=== PATIENT | female | born 1950 | race Caucasian/White ===

== ENCOUNTER → 2017-07-27 | Outpatient (CLI) | payer OTHER, MEDICARE ==
[~2017-07-27] MED LIST: ALBU8.5H IH; AZIT-1 PO; BENZ100C4 PO; BENZ200C15 PO; CETI-169 PO; DIPH0.5D12 IM; DOXY-181 PO; FLUT1DIS29 IH; GUAI-204 PO; GUAI120L3 PO; HYDR-2966 PO; HYDR473S9 PO; HYDR5SUS PEG; LEVO-85 PO; LEVO500T83 PO; LEVO750T44 PO; LISI-362 PO; METF-410 PO; MONT10TA PO; PHEN180L4; PRED20TA6 PO; SIMV-49 PO; TRIA15CR40 TP; ZOST19404 SQ
[2017-07-27 09:24] LABS: PLATELET COUNT, AUTOMATED 180 K/uL (150-450)
[2017-07-27 09:37] LABS: LDL CHOLESTEROL 41 mg/dl
== END ==
LOC: LAB 08:39
PROVIDERS: ATTEND Nurse Practitioner Family
DX: E78.5 Hyperlipidemia, unspecified (principal); E11.9 Type 2 diabetes mellitus without complications; I10 Essential (primary) hypertension
CPT/HCPCS: 36415; 82040; 82247; 82310; 82374; 82435; 82465; 82565; 82947; 83036; 83718; 84075; 84132; 84155; 84295; 84443; 84450; 84460; 84478; 84520; 85025

== ENCOUNTER 2017-08-07 09:38 | Outpatient (RCR) | payer OTHER, MEDICARE ==
--- NOTE | 2017-08-07 16:32 | Medical Nutrition Therapy ---
Nutrition Anthropometrics Height (Inches): 61.00 Weight (Pounds): 135 Gulshan Nutrition Score: Gulshan Nutrition Risk Score: Dietary Referral Nutrition Risk Factors: Nutrition Risk Comment: Nutrition/Food History Pt reports slow wt loss from high of 153# 1 year ago Breakfast: fruit, 8oz OJ, and cold cereal, egg/ toast on weekend Lunch: fast food kid meal with reg soda or sweet tea Dinner: meat, starch, veg , tea with 2 tsp honey Snacks: cheese cracker or fruit Nutritional Education Nutrition Education Topic: Diabetic Nutrition Learning Readiness: Interested Teaching Methods: Discussion Response to Teaching: Verbalize understanding Teaching Recipient: Patient Nutrition Counseling: Pt states has been under "a lot" of stress lately and believes that has contributed to raise in BG. Pt does houskeeping with daily physical activity. Pt states goes weekly for meditation and accupuncture for stress. Discussed glycemic response to CHO and reviewed high glycemic index foods pt was consuming which may be playing a role in higher A1C. Encoruraged pt to avoid fruit juice in morning and add protein. suggested protein bar as a quick breakfast. Discussed impact of sugary drinks. Recommend using sugar sub or limiting honey to 1 measured teaspoon. Encoruaged pt to increase veg and encouraged to change from sandwich to salad at fast food lunches. Pt was offered diabetes classes but declined at this time. Pt did make behavioural goal and support plan. Nutrition Monitoring & Eval Nutritional Goals Comment: Behavioural goal of lowering A1C by: limiting CHO to 1c or 30-45gm/meal continue accupuncture with meditation for stress relief continue taking diabetic meds as ordered limiing high glucose resonding carb ( fruit juci, cracker, sweet tea, cold cereal) RD Patient Assessment Time: [address] Assessment Type: RD Education Nutritional Comment: Provided 60 minute diabetes eduction focusing on nutrition, goals, support plan Copies To Copies to: ANYA HEREDIA APRN, BETH Aug 07, 2017 16:32
[2017-09-09] MEDS ORDERED: HYDR-2966 PO (10:58)
== END 2017-09-11 ==
LOC: DIET 09:38
PROVIDERS: ATTEND Nurse Practitioner Family
DX: Z71.3 Dietary counseling and surveillance (principal); E11.9 Type 2 diabetes mellitus without complications
CPT/HCPCS: G0108 ×2

== ENCOUNTER 2017-10-07 17:23 | Outpatient (RCR) | payer OTHER, MEDICARE ==
[~2017-10-07 17:23] MED LIST changes: -METF-410 PO; +METF-411 PO
--- NOTE | 2017-10-07 17:51 | Medical Nutrition Therapy ---
Nutrition Anthropometrics Height (Inches): 61.00 Weight (Pounds): 135 Gulshan Nutrition Score: Gulshan Nutrition Risk Score: Dietary Referral Nutrition Risk Factors: Nutrition Risk Comment: Nutritional Education Nutrition Education Topic: Other Learning Barriers: Emotional Learning Readiness: Interested Teaching Methods: Discussion, Demonstration, Audiovisual Response to Teaching: Verbalize understanding Nutrition Monitoring & Eval RD Patient Assessment Time: [address] Assessment Type: RD Education Nutritional Comment: Provided 60 minute diabetes eduction focusing on nutrition, goals, support plan 10/07/17 Pt recently diagnosed with T2DM. Pt instructed on Living with Diabetes topics including foot care, penitentiary complications, exercise, hypoglycemia, sick day care, etc. Pt appears interested in diabetes topics and able to answer questions regarding topics covered. I personally spent a total of 60 minutes educating/counseling patient regarding diabetes self-management in a group setting. See education section and my note above for details. Copies To Copies to: ANYA HEREDIA APRN, DIANNE Oct 07, 2017 17:51
== END 2017-11-11 ==
LOC: DIET 17:23
PROVIDERS: ATTEND Nurse Practitioner Family
DX: Z71.3 Dietary counseling and surveillance (principal); E11.9 Type 2 diabetes mellitus without complications
CPT/HCPCS: G0109

== ENCOUNTER → 2018-06-18 | Outpatient (CLI) | payer OTHER, MEDICARE ==
[~2018-06-18] MED LIST changes: -METF-411 PO; +METF-450 PO
== END ==
LOC: LAB 09:53
PROVIDERS: ATTEND Nurse Practitioner Family
DX: E11.9 Type 2 diabetes mellitus without complications (principal); E78.00 Pure hypercholesterolemia, unspecified; I10 Essential (primary) hypertension
CPT/HCPCS: 36415; 82040; 82247; 82310; 82374; 82435; 82565; 82947; 83036; 84075; 84132; 84155; 84295; 84450; 84460; 84520

== ENCOUNTER → 2018-06-28 | Outpatient (CLI) | payer OTHER, MEDICARE ==
[~2018-06-28] MED LIST changes: +LISI20TA29 PO
--- NOTE | 2018-06-28 16:41 | RADIOLOGY IMAGING REPORT ---
FACILITY: [facility] PATIENT NAME: Courtney Zapata : 1950 MR: [id number] V: [id number] EXAM DATE: ORDERING PHYSICIAN: ANYA HEREDIA TECHNOLOGIST: Location: [facility] [place] Patient: Courtney Zapata : 1950 Visit/Account:[id number] Date of Sevice: 06/28/2018 BONE MINERAL DENSITY HISTORY: Screening; asymptomatic postmenopausal state. COMPARISON: 05/29/2015 FINDINGS: LUMBAR SPINE: Bone mineral density (BMD) measured from L1-L4 correlates with a Z-score of 2.9 and a T-score of 1.3 which is normal as defined by the World Health Organization. The corresponding risk of fracture in t he lumbar spine is not increased compared with a young adult reference population. This value has in creased by 2.0-percent since the prior study. More than 5-percent change is considered significant. HIP: Note, the left hip was processed twice with the 2nd acquisition (image 5) chosen for reporting as it better outlined the superior margin of the femoral neck and greater trochanter. Bone mineral density (BMD) measured in the left TOTAL region correlates with a Z-score of 2.4 and a T -score of 1.2 which is normal as defined by the World Health Organization. The corresponding risk of fracture in the hip is not increased compared with a young adult reference population. This value h as increased by less than 1-percent since the prior study. More than 5-percent change is considered significant. Bone mineral density (BMD) measured in the left FEMORAL NECK region correlates with a Z-score of 1.8 and a T-score of 0.3 which is normal as defined by the World Health Organization. The corresponding risk of fracture in the hip is not increased compared with a young adult reference population. This value has increased by 3.9-percent since the prior study. More than 5-percent change is considered s ignificant. Bone mineral density (BMD) measured in the left Femoral Neck region measures 1.077 g/cm2. IMPRESSION: 1. Lumbar spine: Normal bone mineral density. There has been no significant change in the bone mine ral density since the previous exam. 2. Left total hip: Normal bone mineral density. There has been no significant change in the bone min eral density since the previous exam. 3. Left femoral neck: Normal bone mineral density. There has been no significant change in the bone mineral density since the previous exam. 4. Left femoral neck: Bone Mineral Density is 1.077 g/cm2. The next DEXA scan of this patient should include the following sites: L1-L4 and left hip. FRAX? WHO Fracture Risk Assessment Tool link: <http://www.shef.ac.uk/FRAX/tool.jsp?locationValue=9> PLEASE NOTE: 1) The World Health Organization defines low BMD as follows: T-score Normal > -1 Osteopenia < -1 and > -2.5 Osteoporosis < -2.5 without fractures Established osteoporosis < -2.5 with fractures 2) In general, you may wish to consider: Diagnosis Treatment Follow-up DEXA Normal BMD Prevention 2-3 years Osteopenia Prevention/therapy 1-2 years Osteoporosis Therapy Yearly 3) Fracture risk estimated from the T-score is more accurate for vertebral fractures (often spontane ous) than for hip fractures. Report Dictated By: Sachin Lees MD at 06/28/2018 4:26 PM Report E-Signed By: Sachin Lees MD at 06/28/2018 4:37 PM WSN:[id number]
--- NOTE | 2018-06-30 16:26 | RADIOLOGY IMAGING REPORT ---
[place] [facility] [place] NAME: MOLLY LIM : [id number] MR: [id number] V: [id number] EXAM DATE: ORDERING PHYSICIAN: ANYA HEREDIA TECHNOLOGIST: Mayela Chavez PROCEDURE:BILATERAL DIGITAL SCREENING MAMMOGRAM WITH CAD ASSISTED INTERPRETATION & 3D TOMOSYNTHESIS COMPARISON:Prior mammograms 06/23/17, 06/20/16, 05/29/15, 03/19/12. INDICATIONS:screening FINDINGS: The breasts are almost entirely fatty. The parenchymal pattern has remained stable allowing for difference in mammographic technique & patient positioning. There is no evidence of malignant appearing mass, malignant appearing calcifications or other secondary sign of malignancy in either breast. DIAGNOSTIC CATEGORY 1--NEGATIVE. RECOMMENDATIONS: ROUTINE MAMMOGRAM AND CLINICAL EVALUATION. IMPRESSION: BIRADS 1: Negative. No significant abnormality is seen. Dictated by: Sandy Valdez M.D. on 06/30/2018 at 9:46 Transcribed by: RAZA on 06/30/2018 at 9:50 Approved by: Sandy Valdez M.D. on 06/30/2018 at 16:25 [facility]
== END ==
LOC: MAMO 03:48
PROVIDERS: ATTEND Nurse Practitioner Family
DX: Z12.31 Encounter for screening mammogram for malignant neoplasm of breast (principal); Z78.0 Asymptomatic menopausal state
CPT/HCPCS: 77063; 77067; 77080

== ENCOUNTER → 2018-07-19 | Outpatient (CLI) | payer OTHER, MEDICARE ==
[~2018-07-19] MED LIST changes: +ROSU5TAB8 PO
[2018-07-19 09:29] LABS: PLATELET COUNT, AUTOMATED 191 K/uL (150-450)
[2018-07-19 09:33] LABS: INR 1.03
== END ==
LOC: LAB 08:51
PROVIDERS: ATTEND Nurse Practitioner Family
DX: R74.8 Abnormal levels of other serum enzymes (principal)
CPT/HCPCS: 36415; 82040; 82247; 82310; 82374; 82435; 82565; 82947; 84075; 84132; 84155; 84295; 84450; 84460; 84520; 85025; 85610

== ENCOUNTER → 2018-10-14 | Outpatient (CLI) | payer OTHER, MEDICARE ==
[~2018-10-14] MED LIST changes: -DIPH0.5D12 IM; +DIPH0.5S2 IM
--- NOTE | 2018-10-14 15:23 | RADIOLOGY IMAGING REPORT ---
FACILITY: [facility] [place] PATIENT NAME: Courtney Zapata : 1950 MR: [id number] V: [id number] EXAM DATE: [id number] ORDERING PHYSICIAN: DEENA NANCE TECHNOLOGIST: Location: [facility] [place] Patient: Courtney Zapata : 1950 Visit/Account:[id number] Date of Sevice: 10/14/2018 Exam type: CHEST PA LAT History: Not well for one month, cough and shortness of breath Comparison: May 14, 2014. Findings: The lungs are free of acute effusions, infiltrates or edema. Cardiac silhouette is normal in size. There is no evidence of a pneumothorax or pneumomediastinum. There are mild spondylotic changes of t he thoracic spine IMPRESSION: 1. No acute cardiopulmonary process seen Report Dictated By: Sandy Valdez MD at 10/14/2018 3:17 PM Report E-Signed By: Sandy Valdez MD at 10/14/2018 3:19 PM WSN:[email or web address]
--- NOTE | 2018-10-14 18:08 | RADIOLOGY IMAGING REPORT ---
FACILITY: [facility] PATIENT NAME: Courtney Zapata : 1950 MR: [id number] V: [id number] EXAM DATE: ORDERING PHYSICIAN: DEENA NANCE TECHNOLOGIST: Location: [facility] [place] Patient: Courtney Zapata : 1950 Visit/Account:[id number] Date of Sevice: 10/14/2018 EXAMINATION: CT of the Paranasal Sinuses HISTORY: Chronic sinus symptoms TECHNIQUE: CT was performed through the paranasal sinuses without intravenous contrast administratio n. Coronal and sagittal reformatted images were generated. One of the following dose optimization techniques was utilized in the performance of this exam: autom ated exposure control; adjustment of the mA and/or kV according to patient size; or use of iterative reconstruction technique. Specific details can be referenced in the facility's radiology CT exam ope rational policy. COMPARISON: None. FINDINGS: Clear mastoid air cells and middle ear cavities. Mucous retention cyst or mucosal thickening opacifies a right mid ethmoid air cell. Mucosal thickeni ng within a right posterior ethmoid air cell. The left maxillary sinus cavity is diminutive and nearly completely opacified with mucosal thickening and internal secretions. Mild mucosal thickening in the left mid to anterior ethmoid air cells. Thickening and sclerosis of the left maxillary sinus hernandez in keeping with residua of chronic inflamm ation. Slight leftward nasal septum deviation. No apparent nasal cavity polyp. Patent right infundibulum. Left uncinectomy and partial left middle and left inferior turbinectomies. Surgical absence of left ethmoid osseous septations. 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 The visible extracranial and intracranial structures are normal. IMPRESSION: 1. Left-sided paranasal sinus post surgical findings as described above. 2. Mucosal thickening and secretions nearly completely fill the left maxillary sinus. 3. Chronic left maxillary sinus wall thickening and sclerosis in keeping with residua of chronic inf lammation. 4. Right desmond bullosa. 5. Mild bilateral ethmoid sinus mucosal thickening. Report Dictated By: Александр Crawford MD at 10/14/2018 5:59 PM Report E-Signed By: Александр Crawford MD at 10/14/2018 6:04 PM WSN:[id number]
== END ==
LOC: CT 01:23
PROVIDERS: ATTEND Family Medicine
DX: J32.0 Chronic maxillary sinusitis (principal); J34.9 Unspecified disorder of nose and nasal sinuses; J32.2 Chronic ethmoidal sinusitis
CPT/HCPCS: 70486; 71046

== ENCOUNTER → 2018-12-02 | Outpatient (CLI) | payer OTHER, MEDICARE ==
[~2018-12-02] MED LIST changes: +CHOL200074 PO; +MUPI15CR2 TP; +TRIA10.8
--- NOTE | 2018-12-02 14:57 | RADIOLOGY IMAGING REPORT ---
FACILITY: [facility] [place] PATIENT NAME: Courtney Zapata : 1950 MR: [id number] V: [id number] EXAM DATE: ORDERING PHYSICIAN: DILAN MCKINNEY TECHNOLOGIST: Location: [facility] Patient: Courtney Zapata : 1950 Visit/Account:[id number] Date of Sevice: 12/02/2018 EXAMINATION: CT of the Paranasal Sinuses HISTORY: Chronic sinus symptoms TECHNIQUE: CT was performed through the paranasal sinuses without intravenous contrast administratio n. Coronal and sagittal reformatted images were generated. One of the following dose optimization techniques was utilized in the performance of this exam: autom ated exposure control; adjustment of the mA and/or kV according to patient size; or use of iterative reconstruction technique. Specific details can be referenced in the facility's radiology CT exam ope rational policy. COMPARISON: October 14, 2018 FINDINGS: Clear mastoid air cells and middle ear cavities. Trace new right maxillary sinus secretions. Unchanged opacification of a few right ethmoid air cells . Improved aeration of the left anterior ethmoid sinus. The left maxillary sinus cavity is diminutive. The left maxillary sinus cavity is filled with mucosa l thickening and secretions which has decreased. Unchanged thickening and sclerosis of the left maxi llary sinus hernandez. Slight unchanged leftward nasal septum deviation. Right desmond bullosa. No nasal cavity polyp. Pat ent right infundibulum. Unchanged left sided postsurgical findings. Moderate unchanged left temporomandibular joint degeneration. The visible extracranial and intracran ial structures are normal. IMPRESSION: 1. Unchanged postsurgical findings. 2. Trace new right maxillary sinus fluid. 3. Persistent but decreased left maxillary sinus opacification. Improved left ethmoid sinus aeratio n. 4. Otherwise no change. Report Dictated By: Александр Crawford MD at 12/02/2018 2:43 PM Report E-Signed By: Александр Crawford MD at 12/02/2018 2:51 PM WSN:[id number]
== END ==
LOC: CT 00:45
PROVIDERS: ATTEND Physician Assistant
DX: J32.0 Chronic maxillary sinusitis (principal)
CPT/HCPCS: 70486

== ENCOUNTER → 2018-12-28 | Outpatient (CLI) | payer OTHER, MEDICARE ==
[2018-12-28 09:59] LABS: LDL CHOLESTEROL 31 mg/dl
== END ==
LOC: LAB 09:01
PROVIDERS: ATTEND Family Medicine
DX: Z00.00 Encounter for general adult medical examination without abnormal findings (principal)
CPT/HCPCS: 36415; 82040; 82247; 82310; 82374; 82435; 82465; 82565; 82947; 83036; 83718; 84075; 84132; 84155; 84295; 84443; 84450; 84460; 84478; 84520; 85027

== ENCOUNTER → 2018-12-28 | Outpatient (CLI) | payer OTHER, MEDICARE ==
--- NOTE | 2018-12-28 11:01 | EKG ---
FACILITY: [facility] [place] PATIENT NAME: MOLLY LIM : [id number] MR: [id number] V: [id number] EXAM DATE: ORDERING PHYSICIAN: SHORTY CERON TECHNOLOGIST: KELLEY Test Reason : PREOP Blood Pressure : / mmHG Vent. Rate : 088 BPM Atrial Rate : 088 BPM P-R Int : 186 ms QRS Dur : 078 ms QT Int : 356 ms P-R-T Axes : 060 028 023 degrees QTc Int : 430 ms Normal sinus rhythm Low voltage QRS Borderline ECG No previous ECGs available Confirmed by NIDA ANGULO ([id number]) on 12/29/2018 3:33:58 PM Referred By: MD CERON Confirmed By:NIDA ANGULO
== END ==
LOC: RESP 10:06
PROVIDERS: ATTEND Otolaryngology
DX: Z01.810 Encounter for preprocedural cardiovascular examination (principal); R94.31 Abnormal electrocardiogram [ECG] [EKG]

== ENCOUNTER 2019-01-17 00:13 | Day surgery (SDC) | payer OTHER, MEDICARE ==
[~2019-01-17] VITALS: Ht 152.4 cm; Wt 60.3 kg
[~2019-01-17 00:13] MED LIST changes: +PNEI IM
[2019-01-17 09:56] VITALS: BP 144/75
[2019-01-17] MEDS ORDERED: LIDOCAINE/SOD BICARB 8.4% SYR ID ONE (10:55)
[2019-01-17] MEDS ORDERED: MIDAZOLAM 2 MG/2 ML VIAL IVP PRN (10:55)
[2019-01-17] MEDS ORDERED: CLINDAMYCIN(*) 600 MG/NS 50 ML 50 ML IVPB ONE (10:55)
[2019-01-17] MEDS ORDERED: NORMOSOL R SOLN(*) 1000 ML BAG 1,000 ML IV PRN (10:55)
[2019-01-17] MEDS ORDERED: FAMOTIDINE 20 MG TAB PO ONE (10:55)
[2019-01-17] MEDS ORDERED: BACITRACIN OINT 15 GM TUBE TP ONE (11:38)
[2019-01-17] MEDS ORDERED: LIDO/EPI 1% MDV 1:100,000 20ML INFIL ONE ×2 (11:39→11:51)
[2019-01-17] MEDS ORDERED: NS(*) 0.9% 250 ML BAG 250 ML ONE (11:39)
[2019-01-17] MEDS ORDERED: OXYMETAZOLINE SPRAY 15 ML BTL ONE (11:39)
[2019-01-17] MEDS ORDERED: PROPOFOL EMUL(*) 10MG/ML 20 ML 20 ML ONE (11:41)
[2019-01-17] MEDS ORDERED: DEXAMETHASONE SOD PHOS 10MG/ML ONE (11:41)
[2019-01-17] MEDS ORDERED: ONDANSETRON 4 MG/2 ML VIAL ONE (11:41)
[2019-01-17] MEDS ORDERED: fentaNYL CITR 100 MCG/2 ML AMP ONE ×3 (11:54→13:21)
--- NOTE | 2019-01-17 12:50 | OPERATIVE REPORT 1 ---
EVENT DATE: January 17, 2019 SURGEON: Pasquale Kuhn MD ANESTHESIOLOGIST: Seth Dunham MD ANESTHESIA: LMA. PROCEDURES PERFORMED 1. Right desmond bullosa resection. 2. Right anterior ethmoidectomy. 3. Lysis of left nasal synechiae. 4. Revision of left maxillary antrostomy. PREOPERATIVE DIAGNOSES 1. Chronic right ethmoidal sinusitis. 2. Right desmond bullosa. 3. Chronic left maxillary sinusitis. POSTOPERATIVE DIAGNOSES 1. Chronic right ethmoidal sinusitis. 2. Right desmond bullosa. 3. Chronic left maxillary sinusitis. 4. Left nasal synechiae. INDICATIONS Please refer to preoperative note. DESCRIPTION OF PROCEDURE The patient was positively identified in the preoperative area. Risks were again explained, including but not limited to, bleeding, infection, injury to the orbit, vision changes, injury to the skull base, cerebrospinal fluid lead and those associated with anesthesia. She acknowledged understanding those risks. She was then brought back to the operative suite, laid supine on the operative table and anesthesia was administered. I again reviewed the patient's preoperative CT of the sinuses. This was notable for patchy opacification of the right anterior ethmoid sinuses, a right desmond bullosa and opacification of the left maxillary sinus. The patient's bilateral nasal cavities were initially decongested by placing cottonoids containing Afrin solution. This was subsequently removed. I began on the right side. The right middle turbinate was identified. This was large. Approximately 1 cc of 1% lidocaine with epinephrine was infiltrated into the face. This was sharply entered with a #15 blade. I then performed a lateral resection of the desmond bullosa with endoscopic scissors. An anterior ethmoidectomy was then performed. I then proceeded with the contralateral side. The patient was noted to have a large maxillary ostium with significant scarring. There was gross purulence. I first obtained a culture. The purulence was then suctioned. Lysis of the surrounding scar bands was then performed. I determined that the patient had a nonfunctional left maxillary sinus with significant scarring and a pocket where she was likely retaining secretions, which was becoming infected. Therefore, I performed a revision of maxillary antrostomy, taking down the constitution party wall between the maxillary pocket and the nasal cavity to aid in postoperative irrigation. A NasoPore dressing was placed between the right middle turbinate and the lateral nasal wall. The patient was then turned to Anesthesia for emergence. ESTIMATED BLOOD LOSS 10 cc. COMPLICATIONS No complications. MTDD
[2019-01-17] MEDS ORDERED: HYDR-653 PO (13:26)
[2019-01-17] MEDS ORDERED: AZIT-17 PO (13:26)
[2019-01-17 13:45] VITALS: BP 146/77
[2019-01-17] MEDS ORDERED: APAP/HYDROCODONE 325/5 TAB PO ONE (14:25)
[2019-01-17 15:10] VITALS: BP 125/70
[2019-01-17 15:20] VITALS: BP 141/83
== END 2019-01-17 13:45 | disposition home or self-care (01) ==
LOC: OR 00:13
PROVIDERS: ATTEND Otolaryngology
DX: J32.2 Chronic ethmoidal sinusitis (principal); J32.0 Chronic maxillary sinusitis; J34.89 Other specified disorders of nose and nasal sinuses; E11.9 Type 2 diabetes mellitus without complications
CPT/HCPCS: 31240; 31254; 31256; 36416; 82948; 87071; 87073; 87205; J1100; J2250; J2405; J2704; J3010; J3490; J7050